=== PATIENT | male | born 1950 | race Caucasian/White ===

== ENCOUNTER 2018-03-23 13:29 | Emergency (ER) | payer OTHER, BC ==
[2018-03-23 15:55] LABS: BASO % 0.8 % (0.0-1.0); EOS % 1.7 % (0.0-3.0); HEMATOCRIT 23.2 % (42.0-52.0); IMMATURE GRANULOCYTE % 0.8 % (0-3.0); LYMPH # 0.4 10^3/uL (1.5-4.5); LYMPH % 18.4 % (24.0-44.0); MEAN CORPUSCULAR HEMOGLOBIN 24.1 pg (27.0-33.0); MEAN CORPUSCULAR HGB CONC 30.2 g/dl (32.0-36.5); MEAN CORPUSCULAR VOLUME 79.7 fl (80.0-96.0); MONO # 0.2 10^3/uL (0.0-0.8); MONO % 7.1 % (0.0-5.0); NEUTROPHILS # 1.7 10^3/uL (1.8-7.7); NEUTROPHILS % 71.2 % (36.0-66.0); RED BLOOD COUNT 2.91 10^6/uL (4.30-6.10); RED CELL DISTRIBUTION WIDTH 15.8 % (11.5-14.5); WHITE BLOOD COUNT 2.4 10^3/uL (4.0-10.0)
[2018-03-23 15:56] LABS: POS COUNT POS FLAG
[2018-03-23 16:10] LABS: INR 1.14; PROTHROMBIN TIME 14.8 SECONDS (12.1-14.4)
[2018-03-23] MEDS: NS 1,000 ML IV (16:17)
[2018-03-23] MEDS: PANTOPRAZOLE 40MG INJ (PROTONIX) (C9113) IV (16:17)
[2018-03-23 16:24] LABS: ALBUMIN 3.4 GM/DL (3.2-5.2); ALKALINE PHOSPHATASE 110 U/L (45-117); ALT/SGPT 30 U/L (12-78); ANION GAP 10 MEQ/L (8-16); AST/SGOT 37 U/L (7-37); BILIRUBIN,DIRECT 0.4 MG/DL (0.0-0.2); BILIRUBIN,TOTAL 1.5 MG/DL (0.2-1.0); BLOOD UREA NITROGEN 16 MG/DL (7-18); CALCIUM LEVEL 9.1 MG/DL (8.8-10.2); CARBON DIOXIDE LEVEL 22 MEQ/L (21-32); CHLORIDE LEVEL 112 MEQ/L (98-107); CPK CREATINE PHOSPHOKINASE 30 U/L (39-308); CREATININE FOR GFR 0.98 MG/DL (0.70-1.30); GLOMERULAR FILTRATION RATE > 60.0 (>49); GLUCOSE, FASTING 168 MG/DL (70-100); LIPASE 308 U/L (73-393); POTASSIUM SERUM 4.3 MEQ/L (3.5-5.1); SODIUM LEVEL 144 MEQ/L (136-145); TOTAL PROTEIN 6.8 GM/DL (6.4-8.2); TROPONIN I < 0.02 NG/ML (< 0.10)
[2018-03-23 17:13] LABS: RETIC HEMOGLOBIN EQUIVALENT 19.1 pg (24-36); RETICULOCYTE # 73.5 10^9/L (17-77); RETICULOCYTE % 2.5 % (0.5-1.5)
[2018-03-23 17:27] LABS: FERRITIN 6 NG/ML (26-388); IRON (FE) 69 UG/DL (65-175); LDH LACTATE DEHYDROGENASE 207 U/L (87-241); PERCENT SATURATION 15.1 % (19.7-50.0); SLIDE REVIEW Report; SOURCE PERIPHERAL SMEAR; TOTAL IRON BINDING CAPACITY 458 UG/DL (250-450)
[2018-03-23 17:33] LABS: FOLATE 16.9 NG/ML
[2018-03-23 17:43] LABS: KETONE, URINE AUTO RFX NEGATIVE (NEGATIVE); LEUKOCYTE ESTERASE UR AUTO RFX NEGATIVE (NEGATIVE); NITRITE, URINE AUTO RFX NEGATIVE (NEGATIVE); RBC, URINE AUTO RFX 3 /HPF (0-3); SPECIFIC GRAVITY UR AUTO RFX 1.027 (1.002-1.035); SQUAM EPITHELIAL CELL UR AURFX 0 /HPF (0-6); WBC, URINE AUTO RFX 0 /HPF (0-3)
[2018-03-23 18:00] LABS: FIBRINOGEN 379 MG/DL (221-452)
[2018-03-23 18:25] LABS: IMMEDIATE SPIN CROSSMATCH 1 2
[2018-03-23 19:07] LABS: PLATELET COUNT, AUTOMATED 26 10^3/uL (150-450)
[2018-03-23 19:08] LABS: IMMATURE PLATELET FRACTION % 12.9 % (0.0-10.9)
[2018-03-23 20:10] LABS: IMMEDIATE SPIN CROSSMATCH 1
[2018-03-25 08:06] LABS: HAPTOGLOBIN 106 mg/dL (34-200)
== END 2018-03-23 21:14 | disposition home or self-care (01) ==
LOC: M ED 13:29
DX: D61.818 Other pancytopenia (principal); I10 Essential (primary) hypertension; E11.9 Type 2 diabetes mellitus without complications; Z79.899 Other long term (current) drug therapy; Z79.84 Long term (current) use of oral hypoglycemic drugs; Z98.890 Other specified postprocedural states; Z88.8 Allergy status to other drugs, medicaments and biological substances
CPT/HCPCS: C9113

== ENCOUNTER → 2018-05-10 | Outpatient (CLI) | payer MEDICARE ==
[~2018-05-10] MED LIST: ISOVUE-370 76% 100ML VIAL (Q9967) As Ordered
== END ==
LOC: M RAD 14:56
DX: D50.0 Iron deficiency anemia secondary to blood loss (chronic) (principal); D69.6 Thrombocytopenia, unspecified; D72.819 Decreased white blood cell count, unspecified; K80.20 Calculus of gallbladder without cholecystitis without obstruction; R16.1 Splenomegaly, not elsewhere classified
CPT/HCPCS: Q9967

== ENCOUNTER → 2019-07-05 | Outpatient (REF) | payer MEDICARE ==
[~2019-07-05] MED LIST changes: +DOCU100C16 PO; +FERR1TAB8 PO; +FLUC150T PO; +GABA-1171 PO; +GABA-845 PO; +GLIM4TAB5 PO; +HYDR-3363 PO; +INVO100T PO; +INVO300T PO; +IRON27TA2 PO; -ISOVUE-370 76% 100ML VIAL (Q9967) As Ordered; +LORA1TAB4 PO; +METF10004 PO; +METO1TAB32 PO; +NADO20TA PO; +NITR4TASL SL; +PANT40TA3 PO; +VITA100066 PO; +VITA500079 PO
== END ==
LOC: M LAB LCGH 14:02
PROVIDERS: ATTEND Physician Assistant
DX: L82.1 Other seborrheic keratosis (principal)

== ENCOUNTER → 2019-07-19 | Outpatient (REF) | payer MEDICARE | LOC: M SMT 17:00 | PROVIDERS: ATTEND Nurse Practitioner Family | DX: R97.20 Elevated prostate specific antigen [PSA] (principal); Z79.899 Other long term (current) drug therapy ==

== ENCOUNTER → 2019-08-05 | Outpatient (CLI) | payer MEDICARE ==
[2019-08-07 14:12] LABS: PSA TOTAL 23.2 ng/mL (0.0-4.0)
== END ==
LOC: M PLALAB 13:37
PROVIDERS: ATTEND Nurse Practitioner Family
DX: R97.20 Elevated prostate specific antigen [PSA] (principal)

== ENCOUNTER → 2020-02-21 | Outpatient (CLI) | payer MEDICARE ==
[~2020-02-21] MED LIST changes: +PANT40TA29 PO; -PANT40TA3 PO
[2020-02-21 17:35] LABS: HEMOGLOBIN 14.5 g/dl (13.5-17.5); MEAN CORPUSCULAR HEMOGLOBIN 31.2 pg (27.0-33.0); MEAN CORPUSCULAR HGB CONC 33.7 g/dl (32.0-36.5); MEAN CORPUSCULAR VOLUME 92.5 fl (80.0-96.0); RED BLOOD COUNT 4.65 10^6/uL (4.30-6.10); WHITE BLOOD COUNT 2.6 10^3/uL (4.0-10.0)
[2020-02-21 17:51] LABS: PLATELET COUNT, AUTOMATED 30 10^3/uL (150-450)
[2020-02-21 18:06] LABS: ALBUMIN 3.6 GM/DL (3.2-5.2); ALT/SGPT 50 U/L (12-78); BILIRUBIN,DIRECT 0.5 MG/DL (0.0-0.2); BILIRUBIN,TOTAL 2.1 MG/DL (0.2-1.0); BLOOD UREA NITROGEN 12 MG/DL (7-18); CALCIUM LEVEL 9.2 MG/DL (8.8-10.2); CARBON DIOXIDE LEVEL 28 MEQ/L (21-32); CHLORIDE LEVEL 108 MEQ/L (98-107); CREATININE FOR GFR 0.87 MG/DL (0.70-1.30); GLOMERULAR FILTRATION RATE > 60.0 (>49); GLUCOSE, FASTING 214 MG/DL (70-100); SODIUM LEVEL 143 MEQ/L (136-145); TOTAL PROTEIN 6.7 GM/DL (6.4-8.2)
[2020-02-21 18:08] LABS: INR 1.19; PROTHROMBIN TIME 15.4 SECONDS (11.8-14.0)
== END ==
LOC: M WUC 11:37
PROVIDERS: ATTEND Internal Medicine
DX: K74.69 Other cirrhosis of liver (principal)

== ENCOUNTER → 2022-04-06 | Outpatient (CLI) | payer MEDICARE ==
[~2022-04-06] MED LIST changes: -FLUC150T PO; +FLUC150T9 PO; +GABA-283 PO; -GABA-845 PO; +LASI20TA3 PO; +PRED20TA PO; +VITA100093 PO; +ZINC1TAB2 PO; +[UNRECOGNIZED DRUG - CODE] PO
== END ==
LOC: M WUC 11:13
PROVIDERS: ATTEND Physician Assistant
DX: I51.7 Cardiomegaly (principal); R06.02 Shortness of breath; R05.1 Acute cough

== ENCOUNTER → 2022-07-06 | Outpatient (REF) | payer MEDICARE ==
[2022-07-06 10:01] LABS: INR 1.18; PROTHROMBIN TIME 15.2 SECONDS (12.5-14.5)
[2022-07-06 10:02] LABS: PARTIAL THROMBOPLASTIN TIME 34.2 SECONDS (24.8-34.2)
== END ==
LOC: M LAB REF 09:28
PROVIDERS: ATTEND Internal Medicine Hematology
DX: Z86.2 Personal history of diseases of the blood and blood-forming organs and certain disorders involving the immune mechanism (principal)

== ENCOUNTER → 2022-08-18 | Outpatient (REF) | payer MEDICARE | LOC: M ONCM 08:25 | PROVIDERS: ATTEND Internal Medicine Hematology | DX: Z86.2 Personal history of diseases of the blood and blood-forming organs and certain disorders involving the immune mechanism (principal) ==

== ENCOUNTER → 2022-09-22 | Outpatient (REF) | payer MEDICARE ==
[2022-09-22 12:12] LABS: HEMATOCRIT 40.8 % (42.0-52.0); HEMOGLOBIN 13.6 g/dl (13.5-17.5); MEAN CORPUSCULAR HEMOGLOBIN 30.2 pg (27.0-33.0); MEAN CORPUSCULAR HGB CONC 33.3 g/dl (32.0-36.5); MEAN CORPUSCULAR VOLUME 90.5 fl (80.0-96.0); PLATELET COUNT, AUTOMATED 187 10^3/uL (150-450); RED BLOOD COUNT 4.51 10^6/uL (4.30-6.10); WHITE BLOOD COUNT 3.7 10^3/uL (4.0-10.0)
[2022-09-22 12:38] LABS: HEPATITIS B SURFACE ANTIBODY NEGATIVE (POSITIVE)
[2022-09-22 13:04] LABS: HIV 1&2 SCREEN CENTAUR NEGATIVE (NEGATIVE)
[2022-09-22 13:10] LABS: HEPATITIS C VIRUS ABY INDEX 0.1 INDEX (<0.8)
[2022-09-22 13:11] LABS: HEPATITIS B CORE ANTIBODY IGM NEGATIVE (NEGATIVE)
== END ==
LOC: M LAB REF 11:33
PROVIDERS: ATTEND Internal Medicine Hematology
DX: Z86.2 Personal history of diseases of the blood and blood-forming organs and certain disorders involving the immune mechanism (principal)

== ENCOUNTER → 2022-10-27 | Outpatient (CLI) | payer MEDICARE ==
[~2022-10-27] MED LIST changes: +LORA1TAB23 PO; -LORA1TAB4 PO
[2022-10-27 13:36] LABS: HEMATOCRIT 37.4 % (42.0-52.0); HEMOGLOBIN 12.5 g/dl (13.5-17.5); MEAN CORPUSCULAR HGB CONC 33.4 g/dl (32.0-36.5); MEAN CORPUSCULAR VOLUME 92.8 fl (80.0-96.0); RED BLOOD COUNT 4.03 10^6/uL (4.30-6.10); WHITE BLOOD COUNT 3.9 10^3/uL (4.0-10.0)
[2022-10-27 13:40] LABS: PLATELET COUNT, AUTOMATED 64 10^3/uL (150-450)
== END ==
LOC: M PLALAB 11:09
PROVIDERS: ATTEND Internal Medicine Hematology
DX: Z86.2 Personal history of diseases of the blood and blood-forming organs and certain disorders involving the immune mechanism (principal)

== ENCOUNTER → 2022-11-02 | Outpatient (CLI) | payer MEDICARE ==
[2022-11-02 15:41] LABS: HEMATOCRIT 37.4 % (42.0-52.0); HEMOGLOBIN 12.5 g/dl (13.5-17.5); MEAN CORPUSCULAR HEMOGLOBIN 31.4 pg (27.0-33.0); MEAN CORPUSCULAR HGB CONC 33.4 g/dl (32.0-36.5); RED BLOOD COUNT 3.98 10^6/uL (4.30-6.10); WHITE BLOOD COUNT 2.9 10^3/uL (4.0-10.0)
[2022-11-02 16:16] LABS: PLATELET COUNT, AUTOMATED 34 10^3/uL (150-450)
== END ==
LOC: M PLALAB 12:29
PROVIDERS: ATTEND Internal Medicine Hematology
DX: Z79.899 Other long term (current) drug therapy (principal); Z86.2 Personal history of diseases of the blood and blood-forming organs and certain disorders involving the immune mechanism

== ENCOUNTER → 2022-11-09 | Outpatient (CLI) | payer MEDICARE ==
[2022-11-09 14:47] LABS: BASO % 0.3 % (0.0-1.0); EOS # 0.1 10^3/uL (0.0-0.5); EOS % 1.5 % (0.0-3.0); HEMATOCRIT 38.4 % (42.0-52.0); HEMOGLOBIN 12.9 g/dl (13.5-17.5); LYMPH # 0.6 10^3/uL (1.5-5.0); LYMPH % 16.9 % (24.0-44.0); MEAN CORPUSCULAR HEMOGLOBIN 31.5 pg (27.0-33.0); MEAN CORPUSCULAR HGB CONC 33.6 g/dl (32.0-36.5); MEAN CORPUSCULAR VOLUME 93.9 fl (80.0-96.0); MONO # 0.3 10^3/uL (0.0-0.8); MONO % 8.9 % (2.0-8.0); NEUTROPHILS # 2.4 10^3/uL (1.5-8.5); NEUTROPHILS % 71.8 % (36.0-66.0); RED BLOOD COUNT 4.09 10^6/uL (4.30-6.10); WHITE BLOOD COUNT 3.4 10^3/uL (4.0-10.0)
[2022-11-09 15:02] LABS: PLATELET COUNT, AUTOMATED 20 10^3/uL (150-450)
== END ==
LOC: M PLALAB 12:11
PROVIDERS: ATTEND Internal Medicine Hematology
DX: Z79.899 Other long term (current) drug therapy (principal); Z86.2 Personal history of diseases of the blood and blood-forming organs and certain disorders involving the immune mechanism

== ENCOUNTER → 2022-11-16 | Outpatient (CLI) | payer MEDICARE ==
[2022-11-16 15:12] LABS: BASO % 0.2 % (0.0-1.0); HEMATOCRIT 40.5 % (42.0-52.0); HEMOGLOBIN 13.8 g/dl (13.5-17.5); LYMPH # 0.2 10^3/uL (1.5-5.0); LYMPH % 3.6 % (24.0-44.0); MEAN CORPUSCULAR HEMOGLOBIN 31.5 pg (27.0-33.0); MEAN CORPUSCULAR HGB CONC 34.1 g/dl (32.0-36.5); MEAN CORPUSCULAR VOLUME 92.5 fl (80.0-96.0); MONO # 0.3 10^3/uL (0.0-0.8); MONO % 4.7 % (2.0-8.0); NEUTROPHILS # 5.8 10^3/uL (1.5-8.5); RED BLOOD COUNT 4.38 10^6/uL (4.30-6.10); WHITE BLOOD COUNT 6.3 10^3/uL (4.0-10.0)
[2022-11-16 15:19] LABS: PLATELET COUNT, AUTOMATED 20 10^3/uL (150-450)
== END ==
LOC: M PLALAB 11:29
PROVIDERS: ATTEND Internal Medicine Hematology
DX: Z79.899 Other long term (current) drug therapy (principal); Z86.2 Personal history of diseases of the blood and blood-forming organs and certain disorders involving the immune mechanism

== ENCOUNTER 2022-11-28 06:57 | Outpatient (CLI) | payer MEDICARE ==
[~2022-11-28] VITALS: Ht 175.3 cm; Wt 94.0 kg
[2022-11-28] MEDS ORDERED: methylPREDNISolone 125MG 2ML VIAL IV PRN (07:01)
[2022-11-28] MEDS ORDERED: diphenhydrAMINE 50MG/ML VIAL IV PRN (07:01)
[2022-11-28] MEDS ORDERED: EPINEPHrine INJ 1 MG/ML 1ML AMP IM PRN (07:01)
[2022-11-28] MEDS ORDERED: ALBUTEROL SULFATE 2.5MG/0.5ML INH NEB SOLN INH PRN (07:01)
[2022-11-28 07:15] VITALS: BP 193/93
[2022-11-28] MEDS ORDERED: IMMUNE GLOBULIN 10% 40 GM in IV 1 EA IV ONE (07:30)
[2022-11-28] MEDS ORDERED: diphenhydrAMINE 25MG CAP PO ONE (07:30)
[2022-11-28] MEDS ORDERED: ACETAMINOPHEN TAB 650MG DOSE (2X325MG) PO ONE (07:30)
[2022-11-28] MEDS ORDERED: NS 1,000 ML IV SCH (07:30)
[2022-11-28 08:03] VITALS: BP 181/81
[2022-11-28 08:30] VITALS: BP 160/74
[2022-11-28 09:00] VITALS: BP 180/70
[2022-11-28 10:30] VITALS: BP 179/86
== END 2022-11-28 10:30 ==
LOC: M INFU 06:57
PROVIDERS: ATTEND Internal Medicine Hematology
DX: D69.3 Immune thrombocytopenic purpura (principal); Z88.8 Allergy status to other drugs, medicaments and biological substances
CPT/HCPCS: 96365; 96366; J1459

== ENCOUNTER 2022-11-29 08:00 | Outpatient (CLI) | payer MEDICARE ==
[~2022-11-29] VITALS: Ht 172.7 cm; Wt 91.5 kg
[~2022-11-29 08:00] MED LIST changes: +ALBUTEROL SULFATE 2.5MG/0.5ML INH NEB SOLN INH PRN; +EPINEPHrine INJ 1 MG/ML 1ML AMP IM PRN; +diphenhydrAMINE 50MG/ML VIAL IV PRN; +methylPREDNISolone 125MG 2ML VIAL IV PRN
[2022-11-29] MEDS ORDERED: diphenhydrAMINE 50MG CAP PO ONE (08:30)
[2022-11-29] MEDS ORDERED: NS 1,000 ML IV SCH (08:30)
[2022-11-29] MEDS ORDERED: IMMUNE GLOBULIN 10% 40 GM in IV 1 EA IV ONE (08:30)
[2022-11-29] MEDS ORDERED: ACETAMINOPHEN TAB 650MG DOSE (2X325MG) PO ONE (08:30)
[2022-11-29 09:00] VITALS: BP 187/84; O2SAT 98
[2022-11-29 10:00] VITALS: BP 147/63; O2SAT 99
[2022-11-29 11:00] VITALS: BP 157/77; O2SAT 100
[2022-11-29 12:25] VITALS: BP 150/68; O2SAT 97
== END 2022-11-29 12:25 | disposition home or self-care (01) ==
LOC: M INFU 08:00
PROVIDERS: ATTEND Internal Medicine Hematology
DX: D69.3 Immune thrombocytopenic purpura (principal); Z88.8 Allergy status to other drugs, medicaments and biological substances
CPT/HCPCS: 96365; 96366; J1459

== ENCOUNTER → 2022-11-30 | Outpatient (CLI) | payer MEDICARE ==
[~2022-11-30] MED LIST changes: -ALBUTEROL SULFATE 2.5MG/0.5ML INH NEB SOLN INH PRN; -EPINEPHrine INJ 1 MG/ML 1ML AMP IM PRN; -diphenhydrAMINE 50MG/ML VIAL IV PRN; -methylPREDNISolone 125MG 2ML VIAL IV PRN
[2022-11-30 14:04] LABS: BASO % 0.2 % (0.0-1.0); EOS % 0.5 % (0.0-3.0); HEMATOCRIT 38.6 % (42.0-52.0); HEMOGLOBIN 12.8 g/dl (13.5-17.5); LYMPH # 0.4 10^3/uL (1.5-5.0); LYMPH % 10.2 % (24.0-44.0); MEAN CORPUSCULAR HEMOGLOBIN 32.2 pg (27.0-33.0); MEAN CORPUSCULAR HGB CONC 33.2 g/dl (32.0-36.5); MONO # 0.3 10^3/uL (0.0-0.8); MONO % 6.7 % (2.0-8.0); NEUTROPHILS # 3.3 10^3/uL (1.5-8.5); NEUTROPHILS % 81.7 % (36.0-66.0); RED BLOOD COUNT 3.98 10^6/uL (4.30-6.10)
[2022-11-30 14:49] LABS: PLATELET COUNT, AUTOMATED 16 10^3/uL (150-450)
== END ==
LOC: M PLALAB 11:18
PROVIDERS: ATTEND Internal Medicine Hematology
DX: Z86.2 Personal history of diseases of the blood and blood-forming organs and certain disorders involving the immune mechanism (principal)

== ENCOUNTER → 2022-12-01 | Outpatient (CLI) | payer MEDICARE ==
[2022-12-01 14:25] LABS: EOS % 0.8 % (0.0-3.0); HEMOGLOBIN 13.4 g/dl (13.5-17.5); LYMPH # 0.4 10^3/uL (1.5-5.0); LYMPH % 12.5 % (24.0-44.0); MEAN CORPUSCULAR HEMOGLOBIN 31.7 pg (27.0-33.0); MEAN CORPUSCULAR HGB CONC 32.7 g/dl (32.0-36.5); MEAN CORPUSCULAR VOLUME 96.9 fl (80.0-96.0); MONO # 0.2 10^3/uL (0.0-0.8); MONO % 6.8 % (2.0-8.0); NEUTROPHILS # 2.8 10^3/uL (1.5-8.5); NEUTROPHILS % 78.5 % (36.0-66.0); RED BLOOD COUNT 4.23 10^6/uL (4.30-6.10); WHITE BLOOD COUNT 3.5 10^3/uL (4.0-10.0)
[2022-12-01 15:19] LABS: PLATELET COUNT, AUTOMATED 14 10^3/uL (150-450)
== END ==
LOC: M PLALAB 09:59
PROVIDERS: ATTEND Internal Medicine Hematology
DX: Z86.2 Personal history of diseases of the blood and blood-forming organs and certain disorders involving the immune mechanism (principal)

== ENCOUNTER → 2022-12-12 | Outpatient (CLI) | payer MEDICARE ==
[2022-12-12 14:33] LABS: BASO % 0.4 % (0.0-1.0); EOS % 1.5 % (0.0-3.0); HEMOGLOBIN 11.1 g/dl (13.5-17.5); LYMPH # 0.5 10^3/uL (1.5-5.0); LYMPH % 17.6 % (24.0-44.0); MEAN CORPUSCULAR HEMOGLOBIN 31.5 pg (27.0-33.0); MEAN CORPUSCULAR HGB CONC 33.6 g/dl (32.0-36.5); MEAN CORPUSCULAR VOLUME 93.8 fl (80.0-96.0); MONO # 0.2 10^3/uL (0.0-0.8); MONO % 8.5 % (2.0-8.0); NEUTROPHILS # 1.9 10^3/uL (1.5-8.5); NEUTROPHILS % 71.3 % (36.0-66.0); RED BLOOD COUNT 3.52 10^6/uL (4.30-6.10); WHITE BLOOD COUNT 2.7 10^3/uL (4.0-10.0)
[2022-12-12 14:41] LABS: PLATELET COUNT, AUTOMATED 34 10^3/uL (150-450)
[2022-12-12 14:50] LABS: ALBUMIN 2.6 G/DL (3.2-5.2); ALKALINE PHOSPHATASE 127 U/L (46-116); ALT/SGPT 41 U/L (7.0-40); AST/SGOT 37 U/L (<34); BILIRUBIN,TOTAL 1.8 MG/DL (0.3-1.2); BLOOD UREA NITROGEN 13 MG/DL (9-23); CALCIUM LEVEL 8.5 MG/DL (8.3-10.6); CARBON DIOXIDE LEVEL 24 MMOL/L (20-31); CHLORIDE LEVEL 107 MMOL/L (98-107); CREATININE FOR GFR 0.78 MG/DL (0.70-1.30); GLOMERULAR FILTRATION RATE > 60.0 (>42); GLUCOSE, FASTING 209 MG/DL (74-106); POTASSIUM SERUM 4.2 MMOL/L (3.5-5.1); SODIUM LEVEL 137 MMOL/L (136-145); TOTAL PROTEIN 5.5 G/DL (5.7-8.2)
== END ==
LOC: M PLALAB 10:50
PROVIDERS: ATTEND Internal Medicine Hematology
DX: Z86.2 Personal history of diseases of the blood and blood-forming organs and certain disorders involving the immune mechanism (principal)

== ENCOUNTER → 2022-12-15 | Outpatient (CLI) | payer MEDICARE ==
[2022-12-15 15:06] LABS: PERCENT SATURATION 21.6 % (19.7-50.0)
[2022-12-15 15:10] LABS: FREE T4 0.91 NG/DL (0.89-1.76)
[2022-12-15 15:11] LABS: FERRITIN 168.5 NG/ML (10.5-307.3); THYROID STIMULATING HORMONE 2.125 uIU/ML (0.55-4.78)
[2022-12-15 15:14] LABS: HEMATOCRIT 37.3 % (42.0-52.0)
[2022-12-15 16:05] LABS: HEMATOCRIT 37.1 % (42.0-52.0); HEMOGLOBIN 12.1 g/dl (13.5-17.5); MEAN CORPUSCULAR HEMOGLOBIN 31.8 pg (27.0-33.0); MEAN CORPUSCULAR HGB CONC 32.6 g/dl (32.0-36.5); MEAN CORPUSCULAR VOLUME 97.4 fl (80.0-96.0); RED BLOOD COUNT 3.81 10^6/uL (4.30-6.10); WHITE BLOOD COUNT 2.3 10^3/uL (4.0-10.0)
[2022-12-15 16:06] LABS: PLATELET COUNT, AUTOMATED 36 10^3/uL (150-450)
== END ==
LOC: M PLALAB 09:40
PROVIDERS: ATTEND Internal Medicine Hematology
DX: D50.0 Iron deficiency anemia secondary to blood loss (chronic) (principal); Z79.899 Other long term (current) drug therapy

== ENCOUNTER → 2023-01-30 | Outpatient (CLI) | payer MEDICARE ==
[~2023-01-30] MED LIST changes: -GABA-283 PO; +GABA-284 PO
[2023-01-30 15:37] LABS: FREE T4 0.83 NG/DL (0.89-1.76); THYROID STIMULATING HORMONE 1.995 uIU/ML (0.55-4.78)
[2023-01-30 15:42] LABS: HEMATOCRIT 38.7 % (42.0-52.0); HEMOGLOBIN 12.6 g/dl (13.5-17.5); MEAN CORPUSCULAR HEMOGLOBIN 30.7 pg (27.0-33.0); MEAN CORPUSCULAR HGB CONC 32.6 g/dl (32.0-36.5); MEAN CORPUSCULAR VOLUME 94.4 fl (80.0-96.0); WHITE BLOOD COUNT 1.9 10^3/uL (4.0-10.0)
[2023-01-30 15:44] LABS: PLATELET COUNT, AUTOMATED 33 10^3/uL (150-450)
== END ==
LOC: M PLALAB 12:49
PROVIDERS: ATTEND Internal Medicine Hematology
DX: D50.0 Iron deficiency anemia secondary to blood loss (chronic) (principal); Z79.899 Other long term (current) drug therapy

== ENCOUNTER → 2023-02-07 | Outpatient (CLI) | payer MEDICARE ==
[2023-02-07 11:06] LABS: BASO % 0.4 % (0.0-1.0); EOS # 0.1 10^3/uL (0.0-0.5); EOS % 2.2 % (0.0-3.0); HEMOGLOBIN 13.3 g/dl (13.5-17.5); LYMPH # 0.4 10^3/uL (1.5-5.0); LYMPH % 16.9 % (24.0-44.0); MEAN CORPUSCULAR HEMOGLOBIN 31.1 pg (27.0-33.0); MEAN CORPUSCULAR HGB CONC 33.3 g/dl (32.0-36.5); MEAN CORPUSCULAR VOLUME 93.5 fl (80.0-96.0); MONO # 0.3 10^3/uL (0.0-0.8); MONO % 10.8 % (2.0-8.0); NEUTROPHILS # 1.6 10^3/uL (1.5-8.5); NEUTROPHILS % 69.3 % (36.0-66.0); RED BLOOD COUNT 4.28 10^6/uL (4.30-6.10); WHITE BLOOD COUNT 2.3 10^3/uL (4.0-10.0)
[2023-02-07 11:09] LABS: PLATELET COUNT, AUTOMATED 32 10^3/uL (150-450)
[2023-02-07 11:36] LABS: PERCENT SATURATION 20.7 % (19.7-50.0)
== END ==
LOC: M PLALAB 08:29
PROVIDERS: ATTEND Internal Medicine Hematology
DX: D50.0 Iron deficiency anemia secondary to blood loss (chronic) (principal); D72.819 Decreased white blood cell count, unspecified

== ENCOUNTER → 2023-02-08 | Outpatient (CLI) | payer MEDICARE ==
[2023-02-08 17:11] LABS: PROSTATIC SPECIFIC AG MONITOR 30.18 NG/ML (< 4.00)
[2023-02-08 17:15] LABS: CHOLESTEROL RISK RATIO 4.31 (<5); HDL CHOLESTEROL 34.1 MG/DL (>40); LDL CHOLESTEROL 88.3 MG/DL (<100); NON-HDL-C 112.9 MG/DL
[2023-02-08 17:24] LABS: HEMOGLOBIN A1c 8.8 % (4.0-6.0)
== END ==
LOC: M WUC 11:30
PROVIDERS: ATTEND Physician Assistant
DX: E11.65 Type 2 diabetes mellitus with hyperglycemia (principal); E78.2 Mixed hyperlipidemia; R97.20 Elevated prostate specific antigen [PSA]

== ENCOUNTER → 2023-02-24 | Outpatient (CLI) | payer MEDICARE | LOC: M WUC 11:46 | PROVIDERS: ATTEND Internal Medicine | DX: I70.0 Atherosclerosis of aorta (principal) ==

== ENCOUNTER → 2023-05-22 | Outpatient (CLI) | payer MEDICARE ==
[2023-05-22 12:43] LABS: BASO % 0.3 % (0.0-1.0); EOS % 0.7 % (0.0-3.0); HEMATOCRIT 38.3 % (42.0-52.0); LYMPH # 0.5 10^3/uL (1.5-5.0); LYMPH % 17.6 % (24.0-44.0); MEAN CORPUSCULAR HEMOGLOBIN 30.3 pg (27.0-33.0); MEAN CORPUSCULAR HGB CONC 33.9 g/dl (32.0-36.5); MEAN CORPUSCULAR VOLUME 89.3 fl (80.0-96.0); MONO # 0.2 10^3/uL (0.0-0.8); MONO % 8.1 % (2.0-8.0); NEUTROPHILS # 2.2 10^3/uL (1.5-8.5); RED BLOOD COUNT 4.29 10^6/uL (4.30-6.10)
[2023-05-22 13:44] LABS: PLATELET COUNT, AUTOMATED 26 10^3/uL (150-450)
== END ==
LOC: M PLALAB 09:40
PROVIDERS: ATTEND Internal Medicine Hematology
DX: Z86.2 Personal history of diseases of the blood and blood-forming organs and certain disorders involving the immune mechanism (principal)